=== PATIENT | female | born 1970 | race American Indian/Alaskan Native ===

== ENCOUNTER 2016-11-22 11:36 | Emergency (ER) | payer MEDICAID ==
[2016-11-22 12:46] LABS: Basophils % (Auto) 0.9 % (0.0-1.8); Eosinophils % (Auto) 2.3 % (0.0-4.3); Hematocrit 38.5 % (30.3-42.9); Hemoglobin 12.7 gm/dl (10.1-14.3); Mean Corpuscular HGB Conc 33 % (30-34); Mean Corpuscular Hemoglobin 30 pg (28-32); Mean Corpuscular Volume 92 fl (79-97); Platelet Count 260 K/mm3 (140-440); Red Blood Count 4.19 M/mm3 (3.65-5.03); Red Cell Distribution Width 14.1 % (13.2-15.2); White Blood Count 6.8 K/mm3 (4.5-11.0)
[2016-11-22 12:47] LABS: Anion Gap 19 mmol/L; BUN/Creatinine Ratio 13.33; Blood Urea Nitrogen 12 mg/dL (7-17); Calcium 9.1 mg/dL (8.4-10.2); Carbon Dioxide 22 mmol/L (22-30); Chloride 101.2 mmol/L (98-107); Glucose 141 mg/dL (65-100); Potassium 4.6 mmol/L (3.6-5.0); Sodium 138 mmol/L (137-145)
[2016-11-22 12:52] LABS: Bilirubin,Urine NEG (Negative); Blood,Urine NEG (Negative); Ketones,Urine NEG (Negative); Leukocyte Esterase,Urine NEG (Negative); Mucus,Urine FEW /HPF; Nitrite,Urine NEG (Negative); Protein,Urine <15 mg/dL mg/dL (Negative); Urobilinogen,Urine < 2.0 mg/dL (<2.0)
[2016-11-22] MEDS ORDERED: ATIVAN PO ONE (13:21)
--- NOTE | 2016-11-22 14:01 | Emergency Department Report ---
ED General Adult HPI - General Chief complaint: Hyperglycemia Stated complaint: HIGH BLOOD SUGAR/ANXIETY Time Seen by Provider: 11/22/16 12:41 Source: patient Mode of arrival: Ambulatory Limitations: No Limitations - History of Present Illness Initial comments: Patient is a 46-year-old female who presents with high blood sugar and anxiety. Patient states that she took her blood sugar today it was 256 and she was very anxious. Her anxiety is moderate checking her blood sugar makes it worse nothing makes it better. She states that she has been out of insulin for the last 4 days. However she does not know the dose or what type of insulin she uses. She has type 2 diabetes mellitus on metformin. Patient denies having any headache or nausea just some slight shortness of breath for her anxiety. She states she takes alprazolam for her anxiety. And that she is out of it. - Related Data Previous Rx's Medication Instructions Recorded Last Taken Type hydrOXYzine HCL [Atarax] 25 mg PO Q6HR PRN #35 tablet 11/22/16 Unknown Rx Allergies Allergy/AdvReac Type Severity Reaction Status Date / Time morphine Allergy Hives Verified 11/22/16 11:59 ED Review of Systems ROS: Stated complaint: HIGH BLOOD SUGAR/ANXIETY Other details as noted in HPI Constitutional: denies: chills, fever Eyes: denies: eye pain, eye discharge, vision change ENT: denies: ear pain, throat pain Respiratory: denies: cough, shortness of breath, wheezing Cardiovascular: denies: chest pain, palpitations Endocrine: no symptoms reported Gastrointestinal: denies: abdominal pain, nausea, diarrhea Genitourinary: denies: urgency, dysuria, discharge Musculoskeletal: denies: back pain, joint swelling, arthralgia Skin: denies: rash, lesions Neurological: denies: headache, weakness, paresthesias Psychiatric: anxiety. denies: depression Hematological/Lymphatic: denies: easy bleeding, easy bruising ED Past Medical Hx - Past Medical History Previous Medical History?: Yes Hx Hypertension: Yes Hx Diabetes: Yes Additional medical history: ANXIETY - Surgical History Past Surgical History?: Yes Hx Cholecystectomy: Yes Hx Appendectomy: Yes Additional Surgical History: C SECTION ARM SURGERY - Social History Smoking Status: Never Smoker Substance Use Type: None - Medications Home Medications: Home Medications Medication Instructions Recorded Confirmed Last Taken Type hydrOXYzine HCL [Atarax] 25 mg PO Q6HR PRN #35 tablet 11/22/16 Unknown Rx ED Physical Exam - General Limitations: No Limitations General appearance: alert, in no apparent distress - Head Head exam: Present: atraumatic, normocephalic - Eye Eye exam: Present: normal appearance - ENT ENT exam: Present: mucous membranes moist - Neck Neck exam: Present: normal inspection - Respiratory Respiratory exam: Present: normal lung sounds bilaterally. Absent: respiratory distress - Cardiovascular Cardiovascular Exam: Present: regular rate, normal rhythm. Absent: systolic murmur, diastolic murmur, rubs, gallop - GI/Abdominal GI/Abdominal exam: Present: soft, normal bowel sounds - Extremities Exam Extremities exam: Present: normal inspection - Back Exam Back exam: Present: normal inspection - Neurological Exam Neurological exam: Present: alert, oriented X3 - Psychiatric Psychiatric exam: Present: normal affect, normal mood - Skin Skin exam: Present: warm, dry, intact, normal color. Absent: rash ED Course Vital Signs 11/22/16 11/22/16 11/22/16 11:59 14:02 14:08 Temperature 98.1 F Pulse Rate 96 H Respiratory 18 18 Rate Blood Pressure 132/86 120/76 O2 Sat by Pulse 97 Oximetry - Reevaluation(s) Reevaluation #1: 11/22/16 14:31 Patient states that she is feeling better and I will send patient home with hydralazine. ED Medical Decision Making - Lab Data Result diagrams: 11/22/16 12:16 11/22/16 12:16 Lab Results 11/22/16 11/22/16 11/22/16 Range/Units 12:00 12:16 12:16 WBC 6.8 (4.5-11.0) K/mm3 RBC 4.19 (3.65-5.03) M/mm3 Hgb 12.7 (10.1-14.3) gm/dl Hct 38.5 (30.3-42.9) % MCV 92 (79-97) fl MCH 30 (28-32) pg MCHC 33 (30-34) % RDW 14.1 (13.2-15.2) % Plt Count 260 (140-440) K/mm3 Lymph % (Auto) 43.7 H (13.4-35.0) % Jerome % (Auto) 5.9 (0.0-7.3) % Eos % (Auto) 2.3 (0.0-4.3) % Baso % (Auto) 0.9 (0.0-1.8) % Lymph # 3.0 (1.2-5.4) K/mm3 Jerome # 0.4 (0.0-0.8) K/mm3 Eos # 0.2 (0.0-0.4) K/mm3 Baso # 0.1 (0.0-0.1) K/mm3 Seg Neutrophils % 47.2 (40.0-70.0) % Seg Neutrophils # 3.2 (1.8-7.7) K/mm3 VBG pH (7.320-7.420) Sodium 138 (137-145) mmol/L Potassium 4.6 (3.6-5.0) mmol/L Chloride 101.2 (98-107) mmol/L Carbon Dioxide 22 (22-30) mmol/L Anion Gap 19 mmol/L BUN 12 (7-17) mg/dL Creatinine 0.9 (0.7-1.2) mg/dL Estimated GFR > 60 ml/min BUN/Creatinine Ratio 13.33 % Glucose 141 H (65-100) mg/dL POC Glucose 156 H (70-105) Calcium 9.1 (8.4-10.2) mg/dL Urine Color (Yellow) Urine Turbidity (Clear) Urine pH (5.0-7.0) Ur Specific [place] (1.003-1.030) Urine Protein (Negative) mg/dL Urine Glucose (UA) (Negative) mg/dL Urine Ketones (Negative) mg/dL Urine Blood (Negative) Urine Nitrite (Negative) Urine Bilirubin (Negative) Urine Urobilinogen (<2.0) mg/dL Ur Leukocyte Esterase (Negative) Urine WBC (Auto) (0.0-6.0) /HPF Urine RBC (Auto) (0.0-6.0) /HPF U Epithel Cells (Auto) (0-13.0) /HPF Urine Mucus /HPF 11/22/16 11/22/16 Range/Units 12:16 12:34 WBC (4.5-11.0) K/mm3 RBC (3.65-5.03) M/mm3 Hgb (10.1-14.3) gm/dl Hct (30.3-42.9) % MCV (79-97) fl MCH (28-32) pg MCHC (30-34) % RDW (13.2-15.2) % Plt Count (140-440) K/mm3 Lymph % (Auto) (13.4-35.0) % Jerome % (Auto) (0.0-7.3) % Eos % (Auto) (0.0-4.3) % Baso % (Auto) (0.0-1.8) % Lymph # (1.2-5.4) K/mm3 Jerome # (0.0-0.8) K/mm3 Eos # (0.0-0.4) K/mm3 Baso # (0.0-0.1) K/mm3 Seg Neutrophils % (40.0-70.0) % Seg Neutrophils # (1.8-7.7) K/mm3 VBG pH 7.363 (7.320-7.420) Sodium (137-145) mmol/L Potassium (3.6-5.0) mmol/L Chloride (98-107) mmol/L Carbon Dioxide (22-30) mmol/L Anion Gap mmol/L BUN (7-17) mg/dL Creatinine (0.7-1.2) mg/dL Estimated GFR ml/min BUN/Creatinine Ratio % Glucose (65-100) mg/dL POC Glucose (70-105) Calcium (8.4-10.2) mg/dL Urine Color Yellow (Yellow) Urine Turbidity Clear (Clear) Urine pH 5.0 (5.0-7.0) Ur Specific [place] 1.012 (1.003-1.030) Urine Protein <15 mg/dl (Negative) mg/dL Urine Glucose (UA) Neg (Negative) mg/dL Urine Ketones Neg (Negative) mg/dL Urine Blood Neg (Negative) Urine Nitrite Neg (Negative) Urine Bilirubin Neg (Negative) Urine Urobilinogen < 2.0 (<2.0) mg/dL Ur Leukocyte Esterase Neg (Negative) Urine WBC (Auto) 1.0 (0.0-6.0) /HPF Urine RBC (Auto) 1.0 (0.0-6.0) /HPF U Epithel Cells (Auto) 14.0 H (0-13.0) /HPF Urine Mucus Few /HPF - Medical Decision Making Chief medical diagnosis: Anxiety Differential medical diagnosis hyperglycemia, hypokalemia CBC, CMP, UA, point of care glucose patient will also get oral Ativan. I will send patient home with hydralazine. Asians lab work is unremarkable we'll send patient home with diagnosis of hyperglycemia and anxiety. Critical care attestation.: If time is entered above; I have spent that time in minutes in the direct care of this critically ill patient, excluding procedure time. ED Disposition Clinical Impression: Anxiety, Hyperglycemia Disposition: TO HOME OR SELFCARE Is pt being admited?: No Does the pt Need Aspirin: No Condition: Stable Instructions: Anxiety (ED) Prescriptions: hydrOXYzine HCL [Atarax] 25 mg PO Q6HR PRN #35 tablet PRN Reason: Anxiety Referrals: PRIMARY CARE, [Primary Care Provider] - 3-5 Days Time of Disposition: 14:36
[2016-11-22 15:25] VITALS: BP 118/80
== END 2016-11-22 15:23 | disposition home or self-care (01) ==
LOC: ED 11:36
DX: E11.65 Type 2 diabetes mellitus with hyperglycemia (principal); F41.9 Anxiety disorder, unspecified; I10 Essential (primary) hypertension; Z88.5 Allergy status to narcotic agent
CPT/HCPCS: 36415; 80048; 81001; 82805; 82962; 85025; 99284

== ENCOUNTER 2016-11-30 19:40 | Emergency (ER) | payer MEDICAID ==
--- NOTE | 2016-11-30 21:07 | XRay Report ---
FINAL REPORT PROCEDURE: XR FOOT 3+V RT TECHNIQUE: RIGHT foot radiographs, AP, lateral, and oblique views. CPT 85106 HISTORY: Fall,rt foot pain COMPARISON: No prior studies are available for comparison. FINDINGS: Fracture (s) and/or Dislocation(s): None . Alignment: Normal . Joint space(s): Normal . Soft tissues: Normal . Bone mineralization: Normal . Foreign bodies: None . Calcaneal spurring: None . IMPRESSION: Normal Examination .
--- NOTE | 2016-11-30 21:08 | XRay Report ---
FINAL REPORT PROCEDURE: XR HIP 2-3V RT TECHNIQUE: RIGHT hip radiographs, 2 views each, including AP view of the pelvis. HISTORY: Fall,rt hip pain COMPARISON: No prior studies are available for comparison. FINDINGS: Fracture (s) and/or Dislocation(s): None . Joint space(s): Normal. Soft tissues: Normal. Bone mineralization: Normal. Foreign bodies: None. There is narrowing of the intervertebral disc space at C4-5 IMPRESSION: Unremarkable hip joints. Degenerative disc disease at L4-5
--- NOTE | 2016-11-30 21:08 | XRay Report ---
FINAL REPORT PROCEDURE: XR ANKLE 3+V RT TECHNIQUE: RIGHT ankle radiographs, AP, lateral, and oblique views. CPT 24375 HISTORY: Fall,rt ankle pain COMPARISON: No prior studies are available for comparison. FINDINGS: Fracture (s) and/or Dislocation(s): None. Alignment: Normal. Joint space(s): Normal. Soft tissues: Normal. Bone mineralization: Normal. Foreign bodies: None. Calcaneal spurring: None. IMPRESSION: Normal Examination.
[2016-11-30 21:31] LABS: Hematocrit 35.5 % (30.3-42.9); Hemoglobin 11.8 gm/dl (10.1-14.3); Mean Corpuscular HGB Conc 33 % (30-34); Mean Corpuscular Hemoglobin 31 pg (28-32); Mean Corpuscular Volume 92 fl (79-97); Platelet Count 259 K/mm3 (140-440); Red Blood Count 3.85 M/mm3 (3.65-5.03); Red Cell Distribution Width 14.2 % (13.2-15.2); White Blood Count 6.9 K/mm3 (4.5-11.0)
[2016-11-30 21:42] LABS: Anion Gap 20 mmol/L; Blood Urea Nitrogen 15 mg/dL (7-17); Carbon Dioxide 24 mmol/L (22-30); Chloride 98.3 mmol/L (98-107); Glucose 260 mg/dL (65-100); Potassium 4.1 mmol/L (3.6-5.0); Sodium 138 mmol/L (137-145)
[2016-12-01] MEDS ORDERED: MOTRIN PO ONE (00:27)
--- NOTE | 2016-12-01 01:03 | Emergency Department Report ---
ED General Adult HPI - General Chief complaint: Extremity Problem,Nontraumatic Stated complaint: FALL/LOWER RT SIDE PAIN Time Seen by Provider: 12/01/16 00:19 Source: patient Mode of arrival: Ambulatory Limitations: No Limitations - History of Present Illness Initial comments: 46-year-old female past medical history of diabetes who presents with right ankle and right foot pain. That occurred today. Patient was walking and stepped on a curb about 30 minutes ago twisted her right ankle and foot and her right knee. She landed on her right hip and her right buttocks area. She states the pain to 9 out 10 radiates down her left leg she is able to walk and bear weight on her leg. Walking makes the pain worse often makes it better. She states that some achy type of pain. Patient did not fall on her head and has no loss of consciousness. Severity scale (0 -10): 3 - Related Data Home Medications Medication Instructions Recorded Confirmed Last Taken metFORMIN [Glucophage] 500 mg PO QDAY 11/30/16 11/30/16 Unknown Previous Rx's Medication Instructions Recorded Last Taken Type Ibuprofen [Motrin 400 MG tab] 400 mg PO Q8H PRN #20 tablet 12/01/16 Unknown Rx Allergies Allergy/AdvReac Type Severity Reaction Status Date / Time morphine Allergy Hives Verified 11/22/16 11:59 acetaminophen AdvReac Unknown Verified 11/30/16 19:51 [From Tylenol-Codeine #3] codeine phosphate AdvReac Unknown Verified 11/30/16 19:51 [From Tylenol-Codeine #3] ED Review of Systems ROS: Stated complaint: FALL/LOWER RT SIDE PAIN Other details as noted in HPI Constitutional: denies: chills, fever Eyes: denies: eye pain, eye discharge, vision change ENT: denies: ear pain, throat pain Respiratory: denies: cough, shortness of breath, wheezing Cardiovascular: denies: chest pain, palpitations Endocrine: no symptoms reported Gastrointestinal: denies: abdominal pain, nausea, diarrhea Genitourinary: denies: urgency, dysuria, discharge Musculoskeletal: as per HPI, back pain, arthralgia, myalgia Skin: denies: rash, lesions Neurological: denies: headache, weakness, paresthesias Psychiatric: denies: anxiety, depression Hematological/Lymphatic: denies: easy bleeding, easy bruising ED Past Medical Hx - Past Medical History Previous Medical History?: Yes Hx Hypertension: Yes Hx Diabetes: Yes Additional medical history: ANXIETY - Surgical History Hx Cholecystectomy: Yes Hx Appendectomy: Yes Additional Surgical History: C SECTION ARM SURGERY - Social History Smoking Status: Current Every Day Smoker - Medications Home Medications: Home Medications Medication Instructions Recorded Confirmed Last Taken Type metFORMIN [Glucophage] 500 mg PO QDAY 11/30/16 11/30/16 Unknown History Ibuprofen [Motrin 400 MG tab] 400 mg PO Q8H PRN #20 tablet 12/01/16 Unknown Rx ED Physical Exam - General Limitations: No Limitations General appearance: alert, in no apparent distress - Head Head exam: Present: atraumatic, normocephalic - Eye Eye exam: Present: normal appearance - ENT ENT exam: Present: mucous membranes moist - Neck Neck exam: Present: normal inspection - Respiratory Respiratory exam: Present: normal lung sounds bilaterally. Absent: respiratory distress - Cardiovascular Cardiovascular Exam: Present: regular rate, normal rhythm. Absent: systolic murmur, diastolic murmur, rubs, gallop - GI/Abdominal GI/Abdominal exam: Present: soft, normal bowel sounds - Extremities Exam Extremities exam: Present: other (right hip tenderness and right knee tenderness. 2+ DP pulses patient is neurovascularly intact no deformity patient able to bear weight no swelling or rash) - Back Exam Back exam: Present: normal inspection - Neurological Exam Neurological exam: Present: alert, oriented X3 - Psychiatric Psychiatric exam: Present: normal affect, normal mood - Skin Skin exam: Present: warm, dry, intact, normal color. Absent: rash ED Course Vital Signs 11/30/16 19:53 Temperature 97.4 F L Pulse Rate 99 H Respiratory 20 Rate Blood Pressure 125/80 O2 Sat by Pulse 96 Oximetry - Reevaluation(s) Reevaluation #1: 12/01/16 01:03 Condition is feeling better and is able to walk and bear weight on her leg I will send patient home. ED Medical Decision Making - Lab Data Result diagrams: 11/30/16 21:11 11/30/16 21:11 Lab Results 11/30/16 11/30/16 11/30/16 Range/Units 19:51 21:11 21:11 WBC 6.9 (4.5-11.0) K/mm3 RBC 3.85 (3.65-5.03) M/mm3 Hgb 11.8 (10.1-14.3) gm/dl Hct 35.5 (30.3-42.9) % MCV 92 (79-97) fl MCH 31 (28-32) pg MCHC 33 (30-34) % RDW 14.2 (13.2-15.2) % Plt Count 259 (140-440) K/mm3 Sodium 138 (137-145) mmol/L Potassium 4.1 (3.6-5.0) mmol/L Chloride 98.3 (98-107) mmol/L Carbon Dioxide 24 (22-30) mmol/L Anion Gap 20 mmol/L BUN 15 (7-17) mg/dL Creatinine 1.0 (0.7-1.2) mg/dL Estimated GFR > 60 ml/min BUN/Creatinine Ratio 15.00 % Glucose 260 H (65-100) mg/dL POC Glucose 205 H (70-105) Calcium 9.0 (8.4-10.2) mg/dL - Radiology Data Radiology results: report reviewed, image reviewed X-ray right knee: No acute osseous injury X-ray right hip: No acute osseous injury X-ray right ankle no acute osseous injury - Medical Decision Making Chief medical diagnosis: Right hip contusion Differential medical diagnosis: Ankle sprain, patella sprain, metabolic abnormality CBC, CMP, x-ray of her right lower extremity and oral analgesic medication Laboratory findings just reveal hyperglycemia no evidence of DKA patient also has no osseous injury in the right lower extremity I will send patient home with ibuprofen. Discussed the patient she agrees with plan. Critical care attestation.: If time is entered above; I have spent that time in minutes in the direct care of this critically ill patient, excluding procedure time. ED Disposition Clinical Impression: Acute right hip pain, Hyperglycemia Right knee pain Qualifiers: Chronicity: acute Qualified Code(s): M25.561 - Pain in right knee Right ankle pain Qualifiers: Chronicity: acute Qualified Code(s): M25.571 - Pain in right ankle and joints of right foot Fall Qualifiers: Encounter type: initial encounter Qualified Code(s): W19.XXXA - Unspecified fall, initial encounter Disposition: TO HOME OR SELFCARE Is pt being admited?: No Does the pt Need Aspirin: No Condition: Stable Instructions: Arthralgia (ED) Prescriptions: Ibuprofen [Motrin 400 MG tab] 400 mg PO Q8H PRN #20 tablet PRN Reason: Pain Referrals: PRIMARY CARE, [Primary Care Provider] - 3-5 Days
[2016-12-01 01:17] VITALS: BP 120/79
== END 2016-12-01 01:17 | disposition home or self-care (01) ==
LOC: ED 19:40
DX: M25.561 Pain in right knee (principal); M25.571 Pain in right ankle and joints of right foot; M25.551 Pain in right hip; I10 Essential (primary) hypertension; E11.65 Type 2 diabetes mellitus with hyperglycemia; F17.210 Nicotine dependence, cigarettes, uncomplicated; Z88.6 Allergy status to analgesic agent
CPT/HCPCS: 36415; 80048; 82962; 85027; 99284

== ENCOUNTER 2016-12-13 08:39 | Emergency (ER) | payer MEDICAID ==
[2016-12-13 08:48] VITALS: BP 136/93
--- NOTE | 2016-12-13 11:03 | Emergency Department Report ---
HPI - General Chief Complaint: Extremity Injury, Lower Time Seen by Provider: 12/13/16 10:49 - HPI HPI: Patient reported that she fell 3 weeks ago and had a knot on her right knee now she is having pain at her right knee to foot. She said has been on and off. Patient says she had a primary care physician and she had x-ray done and x-ray did not show any fracture. Patient is stable and reporting pain to left knee at it at a 10 that is intermittent and achy. Worse with movement. She says she took [id number] medication which is ibuprofen which does not help. Denies any numbness or tingling to her extremities. Denies similar pain. She has a history of hypertension and diabetes along with anxiety. History of appendectomy. Denies any swelling or abrasion to her knee. ED Past Medical Hx - Past Medical History Previous Medical History?: Yes Hx Hypertension: Yes Hx Diabetes: Yes Additional medical history: ANXIETY - Surgical History Past Surgical History?: Yes Hx Cholecystectomy: Yes Hx Appendectomy: Yes Additional Surgical History: C SECTION ARM SURGERY - Family History Family history: hypertension - Social History Smoking Status: Current Every Day Smoker Substance Use Type: None - Medications Home Medications: Home Medications Medication Instructions Recorded Confirmed Last Taken Type metFORMIN [Glucophage] 500 mg PO QDAY 11/30/16 11/30/16 Unknown History Ibuprofen [Motrin 400 MG tab] 400 mg PO Q8H PRN #20 tablet 12/01/16 Unknown Rx ED Review of Systems ROS: Stated complaint: LEFT KNEE PAIN Other details as noted in HPI Comment: All other systems reviewed and negative Constitutional: no symptoms reported Respiratory: no symptoms reported Cardiovascular: denies: chest pain, palpitations, edema, syncope Gastrointestinal: denies: abdominal pain, nausea, vomiting, diarrhea Genitourinary: denies: urgency, dysuria, frequency, hematuria, discharge Musculoskeletal: arthralgia. denies: back pain, joint swelling, myalgia Skin: denies: rash Neurological: denies: headache, numbness, paresthesias, confusion, abnormal gait , vertigo Physical Exam - Physical Exam Vital Signs: Vital Signs 12/13/16 08:43 Temperature 98.2 F Pulse Rate 108 H Respiratory 20 Rate Blood Pressure 136/93 O2 Sat by Pulse 98 Oximetry General: This is a 46-year-old female well-nourished well-developed in no acute distress. Physical Exam: Head: Normocephalic, atraumatic, no abrasion, no bruising and no contusion. Eyes: Biateral pupils equal and reactive to light, bilateral EOM intact.. Bilateral conjunctival and sclera without injection, normal accommodation. Nose: Moist, erythema and congested with clear drainage Mouth: Positive pharyngeal exudate and erythema. Uvula is midline and oral airways patent. Moist and tongue is normal Neck: Supple, Positive Cervical adenopathy, full range of motion and no C-spine tenderness. No swelling or tracheal deviation Cardiovascular: S1, S2. Regular rate and rhythm. No murmur. Capillary refill is less then 3 seconds. Lungs: Clear to auscultate bilaterally. No rhonchi, wheezes or rales. No chest wall tenderness MSK: Strength 5/5 in all extremities. No joint deformity or crepitus. Normal inspection. Full range of motion to all extremities. Bilateral knee without effusion or crepitus. No abrasions or laceration noted. Patient would full flexion and extension to knees. Extremities: No clubbing, cyanosis or edema. +2 pulses. No neurovascular compromise. Skin: Clean, dry and intact. No rash or lesions. Psych: Normal mood and behavior. ED Course Vital Signs 12/13/16 08:43 Temperature 98.2 F Pulse Rate 108 H Respiratory 20 Rate Blood Pressure 136/93 O2 Sat by Pulse 98 Oximetry Vital Signs 12/13/16 12/13/16 12/13/16 08:43 11:03 11:30 Temperature 98.2 F Pulse Rate 108 H 100 H Respiratory 20 16 Rate Blood Pressure 136/93 O2 Sat by Pulse 98 Oximetry - Reevaluation(s) Reevaluation #1: 12/13/16 12:19 received Toradol 60 mg in emergency room for knee pain. 12/13/16 12:22 ED Medical Decision Making - Medical Decision Making ED course: Patient here complaining and of knee pain that radiated down her left foot which is 8 out of 10. She took Motrin and says that it did not relieve her pain. Patient will multiple allergies therefore she was given Toradol 60 mg IM for pain which relieved her pain down to 2 out of 10. Discussed with her that she will need to follow up with her primary care physician to address her pain. Bilateral knee exam normal. Patient voiced understanding of discharge diagnoses and treatment plan and discharged home in stable condition without any distress and to follow up with her primary care physician in 2-3 days and also orthopedic doctor in 2-3 days. Critical care attestation.: If time is entered above; I have spent that time in minutes in the direct care of this critically ill patient, excluding procedure time. ED Disposition Clinical Impression: Pain of left knee and lower leg Accidental fall Qualifiers: Encounter type: initial encounter Qualified Code(s): W19.XXXA - Unspecified fall, initial encounter Disposition: TO HOME OR SELFCARE Is pt being admited?: No Does the pt Need Aspirin: No Condition: Stable Instructions: Arthralgia (ED), Knee Exercises (GEN), Knee Pain (ED) Additional Instructions: Please follow up with primary care as recommended Increase fluid intake These follow-up with orthopedic doctor as instructed. avoid taken Motrin, ibuprofen and other NSAIDs that these medication can be toxic to kidney especially since you are a diabetic Referrals: PRIMARY CARE, [Primary Care Provider] - 2-3 Days JLUIS SERRATO MD [Staff Physician] - 2-3 Days Forms: Work/School Release Form(ED)
[2016-12-13] MEDS ORDERED: TORADOL IM ONE (11:06)
== END 2016-12-13 12:30 | disposition home or self-care (01) ==
LOC: ED 08:39
DX: M25.561 Pain in right knee (principal); I10 Essential (primary) hypertension; E11.9 Type 2 diabetes mellitus without complications; F17.200 Nicotine dependence, unspecified, uncomplicated; W19.XXXA Unspecified fall, initial encounter; Y93.9 Activity, unspecified; Y92.9 Unspecified place or not applicable; Y99.9 Unspecified external cause status
CPT/HCPCS: 96372; 99282; J1885

== ENCOUNTER 2016-12-14 22:30 | Emergency (ER) | payer MEDICAID ==
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
[2016-12-15] MEDS ORDERED: ROXICODONE PO ONE (03:11)
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
[2016-12-15] MEDS ORDERED: NORCO 5/325 PO ONE (05:03)
[2016-12-15 05:32] VITALS: BP 124/92
== END 2016-12-15 05:32 | disposition home or self-care (01) ==
LOC: ED 22:30
DX: S06.0X0A Concussion without loss of consciousness, initial encounter (principal); I10 Essential (primary) hypertension; E11.9 Type 2 diabetes mellitus without complications; F41.9 Anxiety disorder, unspecified; F17.200 Nicotine dependence, unspecified, uncomplicated; Z90.49 Acquired absence of other specified parts of digestive tract; Z88.6 Allergy status to analgesic agent; Z88.5 Allergy status to narcotic agent; Y04.8XXA Assault by other bodily force, initial encounter; Y93.89 Activity, other specified; Y92.098 Other place in other non-institutional residence as the place of occurrence of the external cause; Y99.8 Other external cause status
CPT/HCPCS: 70450; 72125

== ENCOUNTER 2017-01-01 20:37 | Emergency (ER) | payer MEDICAID ==
[2017-01-01 20:58] VITALS: BP 126/76
[2017-01-01 21:33] LABS: Basophils % (Auto) 1.1 % (0.0-1.8); Eosinophils % (Auto) 2.1 % (0.0-4.3); Hematocrit 35.4 % (30.3-42.9); Hemoglobin 12.1 gm/dl (10.1-14.3); Mean Corpuscular HGB Conc 34 % (30-34); Mean Corpuscular Hemoglobin 31 pg (28-32); Mean Corpuscular Volume 91 fl (79-97); Platelet Count 272 K/mm3 (140-440); Red Cell Distribution Width 14.4 % (13.2-15.2); White Blood Count 7.4 K/mm3 (4.5-11.0)
[2017-01-01 21:50] LABS: Anion Gap 19 mmol/L; BUN/Creatinine Ratio 15; Blood Urea Nitrogen 17 mg/dL (7-17); Calcium 8.8 mg/dL (8.4-10.2); Carbon Dioxide 22 mmol/L (22-30); Glucose 308 mg/dL (65-100); Potassium 3.9 mmol/L (3.6-5.0); Sodium 135 mmol/L (137-145)
[2017-01-01 22:40] LABS: Bacteria,Urine 1+ /HPF (Negative); Bilirubin,Urine NEG (Negative); Blood,Urine NEG (Negative); Ketones,Urine NEG (Negative); Leukocyte Esterase,Urine SM (Negative); Mucus,Urine 1+ /HPF; Nitrite,Urine NEG (Negative); Urobilinogen,Urine < 2.0 mg/dL (<2.0)
== END 2017-01-01 22:00 | disposition left against medical advice (07) ==
LOC: ED 20:37
DX: R07.9 Chest pain, unspecified (principal); H53.8 Other visual disturbances; Z53.21 Procedure and treatment not carried out due to patient leaving prior to being seen by health care provider
CPT/HCPCS: 36415; 80048; 81001; 82805; 82962; 84484; 85025; 93005; 93010

== ENCOUNTER 2017-01-13 11:06 | Emergency (ER) | payer MEDICAID ==
[2017-01-13 11:32] VITALS: BP 132/85
== END 2017-01-13 13:08 | disposition left against medical advice (07) ==
LOC: ED 11:06
DX: R07.9 Chest pain, unspecified (principal); Z53.21 Procedure and treatment not carried out due to patient leaving prior to being seen by health care provider
CPT/HCPCS: 93005; 93010

== ENCOUNTER 2017-01-21 16:42 | Emergency (ER) | payer MEDICAID ==
[2017-01-21 19:08] LABS: Basophils % (Auto) 1.3 % (0.0-1.8); Eosinophils % (Auto) 2.6 % (0.0-4.3); Hematocrit 35.9 % (30.3-42.9); Hemoglobin 11.9 gm/dl (10.1-14.3); Mean Corpuscular HGB Conc 33 % (30-34); Mean Corpuscular Hemoglobin 30 pg (28-32); Mean Corpuscular Volume 91 fl (79-97); Platelet Count 476 K/mm3 (140-440); Red Blood Count 3.96 M/mm3 (3.65-5.03); Red Cell Distribution Width 13.6 % (13.2-15.2)
[2017-01-21 19:30] LABS: BUN/Creatinine Ratio 22; Blood Urea Nitrogen 22 mg/dL (7-17); Calcium 9.2 mg/dL (8.4-10.2); Carbon Dioxide 24 mmol/L (22-30); Glucose 364 mg/dL (65-100)
[2017-01-21 19:31] LABS: Anion Gap 20 mmol/L; Chloride 95.2 mmol/L (98-107); Potassium 4.3 mmol/L (3.6-5.0); Sodium 135 mmol/L (137-145)
--- NOTE | 2017-01-22 01:50 | Emergency Department Report ---
HPI - General Chief Complaint: Hyperglycemia Time Seen by Provider: 01/22/17 00:03 - HPI HPI: This is a 46-year-old female presents to the emergency department from [place] with complaint of hyperglycemia. She is currently they're being treated for alcohol, depression, bipolar disorder and PTSD. She has a diabetic who takes metformin and NovoLog. She says her blood sugar has been elevated there and around lunch time it was 495. She admits that she is not being given what would be considered a diabetic diet. She is on metformin 500 mg daily and NovoLog 5 units 3 times a day and a sliding scale. She denies any physical complaints including any abdominal pain, chest pain, nausea, vomiting. She has a primary care physician but cannot currently remember their name. No recent travel. ED Past Medical Hx - Past Medical History Previous Medical History?: Yes Hx Hypertension: Yes Hx Diabetes: Yes Hx Psychiatric Treatment: Yes (bipolar,mood disorder,PTSD, major depressive disorder) Additional medical history: ANXIETY, high cholesterol - Surgical History Past Surgical History?: Yes Hx Cholecystectomy: Yes Hx Appendectomy: Yes Additional Surgical History: C SECTION ARM SURGERY, hysterectomy. hernia repair - Social History Smoking Status: Current Every Day Smoker Substance Use Type: Marijuana, Prescribed - Medications Home Medications: Home Medications Medication Instructions Recorded Confirmed Last Taken Type metFORMIN [Glucophage] 500 mg PO QDAY 11/30/16 11/30/16 Unknown History Ibuprofen [Motrin 400 MG tab] 400 mg PO Q8H PRN #20 tablet 12/01/16 Unknown Rx Naproxen [Naprosyn TAB] 500 mg PO BID PRN #20 tablet 12/15/16 Unknown Rx ED Review of Systems ROS: Stated complaint: BLOOD SUGAR HIGH Other details as noted in HPI Comment: All other systems reviewed and negative Constitutional: denies: chills, fever Eyes: denies: eye pain, eye discharge, vision change ENT: denies: ear pain, throat pain Respiratory: denies: cough, shortness of breath, wheezing Cardiovascular: denies: chest pain, palpitations Gastrointestinal: denies: abdominal pain, nausea, diarrhea Genitourinary: denies: urgency, dysuria, discharge Musculoskeletal: denies: back pain, joint swelling, arthralgia Skin: denies: rash, lesions Neurological: denies: headache, weakness, paresthesias Physical Exam - Physical Exam Vital Signs: Vital Signs 01/21/17 01/21/17 01/21/17 18:42 22:05 23:50 Temperature 98.7 F 97.7 F 98.5 F Pulse Rate 92 H 85 88 Respiratory 18 20 18 Rate Blood Pressure 118/76 132/83 Blood Pressure 128/74 [Left] O2 Sat by Pulse 95 95 97 Oximetry 01/22/17 00:12 Temperature Pulse Rate Respiratory 18 Rate Blood Pressure Blood Pressure [Left] O2 Sat by Pulse 97 Oximetry Physical Exam: GENERAL: The patient is well-developed well-nourished. HENT: Normocephalic. Atraumatic. Patient has moist mucous membranes. EYES: Extraocular motions are intact. Pupils equal reactive to light bilaterally. NECK: Supple. Trachea is midline. CHEST/LUNGS: Clear to auscultation. There is no respiratory distress noted. HEART/CARDIOVASCULAR: Regular. There is no tachycardia. There is no gallop rub or murmur. ABDOMEN: Abdomen is soft, nontender. Patient has normal bowel sounds. There is no abdominal distention. SKIN: Skin is warm and dry. NEURO: The patient is awake, alert, and oriented. The patient is cooperative. The patient has no focal neurologic deficits. The patient has normal speech. MUSCULOSKELETAL: There is no tenderness or deformity. There is no limitation range of motion. There is no evidence of acute injury. ED Course Vital Signs 01/21/17 01/21/17 01/21/17 18:42 22:05 23:50 Temperature 98.7 F 97.7 F 98.5 F Pulse Rate 92 H 85 88 Respiratory 18 20 18 Rate Blood Pressure 118/76 132/83 Blood Pressure 128/74 [Left] O2 Sat by Pulse 95 95 97 Oximetry 01/22/17 00:12 Temperature Pulse Rate Respiratory 18 Rate Blood Pressure Blood Pressure [Left] O2 Sat by Pulse 97 Oximetry ED Medical Decision Making - Lab Data Result diagrams: 01/21/17 18:48 01/21/17 18:48 - Medical Decision Making This is a 46-year-old female presents to the emergency department from [place] after having hypoglycemia and/or uncontrolled diabetes mellitus. I believe one issue is that the patient is being fed food at [facility] that is not diabetic family including starchy carbohydrate foods. She does not have any venous acidosis or significant elevation in the anion gap and does not appear to be in diabetic ketoacidosis. Her blood sugars are down to 260 without any insulin or intervention. She was given 3 units of subcutaneous insulin to bring her blood sugar down closer to 200 over the next few hours. She is already on metformin, NovoLog and a sliding scale. The patient will be sent back to [facility] with a recommendation that she make sure she is being given diabetic friendly meals, continue with the sliding scale, and to follow- up with the primary care doctor when she is done with her inpatient psychiatric admission. In the meantime she should return to the emergency Department with any worsening of her symptoms or any acute distress. - Differential Diagnosis DKA, HHNK Critical Care Time: No Critical care attestation.: If time is entered above; I have spent that time in minutes in the direct care of this critically ill patient, excluding procedure time. ED Disposition Clinical Impression: Hyperglycemia Disposition: DC/TX-65 PSY HOSP/PSY UNIT Is pt being admited?: No Condition: Stable Instructions: Diabetic Hyperglycemia (ED) Additional Instructions: Please try and stay away from foods that are high in sugars, carbohydrates and starches. Keep a blood sugar log. Follow-up with your primary care doctor once you're able to do so. Return to the emergency Department with any worsening of her symptoms or any acute distress. Referrals: PRIMARY CARE, [Primary Care Provider] - [facility] Time of Disposition: 02:03
[2017-01-22 02:27] VITALS: BP 123/79
== END 2017-01-22 02:29 ==
LOC: ED 16:42
DX: E11.65 Type 2 diabetes mellitus with hyperglycemia (principal); I10 Essential (primary) hypertension; F31.9 Bipolar disorder, unspecified; F17.200 Nicotine dependence, unspecified, uncomplicated; F12.10 Cannabis abuse, uncomplicated
CPT/HCPCS: 36415; 80048; 82805; 82962; 85025; 96372; J1815